=== PATIENT | female | born 1995 | race Caucasian/White ===

== ENCOUNTER 2025-03-17 20:25 | Emergency (ER) | payer OTHER, MEDICAID, SELFPAY ==
--- OUTSIDE RECORDS SUMMARY | 2025-03-17 20:28 | XMS_ITS | CCD ---
Author Organization Unknown Care Team Providers Care Special Education Inclusion Teacher Name Role Phone Director Report, [place] Primary Care Provider Unava ilable Unavailable Chronic Care Management Unavaila ble Summary Purpose DataExchange Insurance Providers Payer name Policy type / Coverage type Covered green party ID Effective Begin Date Effective End Date are Commercial Insurance [id number] Unkn own [facility] Commercial Insurance [id number] Unkn own Family History Family History data not found Medication Administered No Medication Administered data Reason For Visit No Reason For Visit data
--- OUTSIDE RECORDS SUMMARY | 2025-03-17 20:28 | XMS_ITS | Clinical Summary ---
Author Organization [facility] Address [address], [place] [address] Care Team Providers Care It Sales Executive Name Role Phone Unavailable Primary Care Provider Unavailabl e Source Comments You are receiving this document as you are listed as the primary care provider,follow-up provider, or the patient has been referred to you for consultation.This is in compliance with the Medicare andMedicaid EHR Incentive Program,which states Providers who transition their patient to another setting of careor provider of care or refers their patient to another provider of care shouldprovide summary care record for each transition of care or referral. [facility] Allergies Active Allergy Reactions Criticality Noted Date Comments Amoxicillin Hives High 04/14/2019 Medications citalopram (CELEXA) 20 MG tablet Take 20 mg by mouth daily. 3 04/04/2019 Active JUNEL FE 24 1-20 MG-MCG(24) TK 1 T PO QD UTD 3 04/04/2019 Active amphetamine-dext roamphetamine (ADDERALL XR) 25 MG 24 hour release capsule TK 1 C PO BID UTD 0 04/04/2019 Active Active Problems No known active problems Social History Tobacco Use Types Packs/Day Years Used Date Smoking Tobacco: Never Smokeless Tobacco: Never Comments No Sex and Gender Information Value Date Recorded Sex Assigned at Not on file Legal Sex Female 4:04 PM CDT Gender Identity Not on file Sexual Orientation Not on file Last Filed Vital Signs Vital Sign Reading Time Taken Comments Blood Pressure 118/65 04/14/2019 4:47 PM CDT Pulse 86 04/14/2019 4:47 PM CDT Temperature 36.9 C (98.4 F) 04/14/2019 4:15 PM CDT Respiratory Rate 20 04/14/2019 4:43 PM CDT Oxygen Saturation 100% 04/14/2019 4:15 PM CDT Inhaled Oxygen Concentration - - Weight - - Height - - Body Mass Index - - Plan of Treatment Health Maintenance Due Date Last Done Comments Cervical Cancer Screening Due 1995 Hep C Screening (Preventive Services) 1995 HIV Screening (Preventive Services) 2011 Adult Preventive Visit 2013 DTaP/Tdap/Td Vaccine (1 - Tdap) 2014 HepB Vaccine (1) 2014 COVID-19 Vaccine ( - 2023-2 5 season) 2024 Influenza Vaccine (Season Ended) 2025 Zoster/Shingles Vaccine (1 of 2) 2045 HPV Vaccine Aged Out No longer eligi ble based on patient's age to complete this topic HepA Vaccine Aged Out No longer eligi ble based on patient's age to complete this topic Hib Vaccine Aged Out No longer eligi ble based on patient's age to complete this topic IPV (Polio) Vaccine Aged Out No longe r eligible based on patient's age to complete this topic MCV4 Vaccine Aged Out No longer eligi ble based on patient's age to complete this topic Meningococcal B Vaccine Aged Out No l onger eligible based on patient's age to complete this topic Pneumococcal Vaccine Aged Out No long er eligible based on patient's age to complete this topic
--- OUTSIDE RECORDS SUMMARY | 2025-03-17 20:28 | XMS_ITS | Clinical Summary ---
Author Organization [employer] [facility] Address [address] [place] [id number] Care Team Providers Care Corral Boss Name Role Phone Meg Moore RN Unavailable [phone] None Primary Care Provider Unavailabl e Allergies Active Allergy Reactions Criticality Noted Date Comments Amoxicillin Hives High 12/07/2008 Azithromycin Intolerance-Can't Take High 12/07/2009 Long Q-T syndrome Medications buPROPion (WELLBUTRIN XL) 150 mg Extended-Release tablet 1 Active dextroamphetamin e-amphetamine (ADDERALL XR) 20 mg Extended-Release capsule TAKE 1 CAPSULE BY MOUTH ONCE A DAY IN THE AFTERNOON IN ADDITION TO MORNING DOSES OF STIMULANTS. 3 Active methylphenidate HCl (RITALIN) 20 mg tablet Take 50 mg by mouth once daily. 3 Active vit 28/iron fum/folic (multivitamin folic acid 1 mg) Take 1 Tablet by mouth once daily. 4 Active lamoTRIgine 100 mg tablet Take 75 mg by mouth once daily. 5 Active SUMAtriptan (IMITREX) 50 mg tabletIndication s:Migraine with status migrainosus, not intractable, unspecified migraine type Take 1 Tablet (50 mg) by mouth 2 times daily if needed for Migraine. Give at minimum 2hrs apart. Max Dose: 200mg per 24hrs. 10 Tablet 3 5 Active lurasidone (Latuda) 20 mg tablet Take 3 Tablets (60 mg) by mouth. 5 Active buPROPion (WELLBUTRIN XL) 300 mg Extended-Release tablet Take 1 Tablet by mouth once daily. 4 Active Hospital, Clinic, or Other Facility Administered Medication Ordered Dose Route Frequency Start Date End Date Status levonorgestrel (MIRENA) 20 mcg/24 hours (8 yrs) 52 mg intrauterine device (IUD) 1 DeviceIndications:Encounter for IUD insertion 1 Device IU Q 8 YEARS 08/04/2024 Active Active Problems Problem Noted Date Diagnosed Date LGSIL of cervix of undetermined significance 05/2024 Overview (12/18/2023): 11/2023 LSIL/HPV+, HPV 16/18 negative 12/2023 colposcopy: benign cervical bx and ECC. Plan: Pap/HPV due 12/2024 Asthma 10/13/2021 Marijuana use 03/25/2020 Suicidal ideation 03/25/2020 Mood disorder 03/25/2020 Anxiety disorder 09/25/2017 Alcohol use disorder, mild, abuse 07/05/2017 Cannabis use disorder, mild, abuse 07/05/2017 Bipolar 2 disorder 06/21/2017 Mild anemia 07/11/2016 Stimulant use disorder 07/11/2016 Overview (08/07/2016): Has been getting adderall from friends. No not prescribe. 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 Many meds including beta blockers are contraindicated. Encounters Date Type Department Care Team Description 12/30/2024 10:25 AM PHOTO CARTOGRAPHER Office Visit [address] [place] [address] Smooth Stoner MD Joint Pain (shoulders, ankles and knees have been bothersome ) 12/30/2024 Travel 12/20/2024 11:55 AM [facility] Telemedicine [facility] [address] [place] [address] Sofiya William, PUBLIC ADDRESS ANNOUNCER Headache 12/20/2024 Travel from Last 3 Months Immunizations Immunization Administration Dates Next Due COVID-19 VACCINE SPIKEVAX (M ODERNA 50MCG/0.5ML) 12YO+ PFS 11/29/2023 COVID-19 vaccine (Pfizer-Bio NTech 30mcg/0.3mL) 12YO+ BIVALENT PF, MDV 09/03/2022 COVID-19 vaccine (Pfizer-Bio NTech 30mcg/0.3mL) PF, MDV 10/13/2021 Human Papilloma Virus Vaccine 10/01/2014, 012,08/01/2012 Inactivated Polio Vaccine 04/27/2006 Influenza, IIV4 11/29/2023,,10/13/2021,09/22,11/29/2016 MENINGOCOCCAL VACCINE 2 VIAL 2MO-55YO (MENVEO) 10/01/2014 MMR 04/27/2006 Pneumococcal Conj 20-valent (Prevnar 20) 09/03/2022 Tdap 10/01/2014,04/27/2006 Varicella Vaccine 08/01/2012 Family History Medical History Relation Name Comments No Known Problems Brother No Known Problems Daughter Good Health Father No Known Problems Half-Brother No Known Problems Half-Sister No Known Problems Maternal Aunt No Known Problems Maternal Grandfather No Known Problems Maternal Grandmother No Known Problems Maternal Uncle Ulcerative colitis Mother Premature CHD (under age 60) Other no family history of sudden No Known Problems Paternal Aunt No Known Problems Paternal Grandfather No Known Problems Paternal Grandmother No Known Problems Paternal Uncle No Known Problems Sister No Known Problems Son Relation Name Status Comments Brother Daughter Father Alive Half-Brother Half-Sister Maternal Aunt Maternal Grandfather Maternal Grandmother Maternal Uncle Mother Alive Other Paternal Aunt Paternal Grandfather Paternal Grandmother Paternal Uncle Sister Son Social History Tobacco Use Types Packs/Day Years Used Date Smoking Tobacco: Never Passive Smoke Exposure: Never Smokeless Tobacco: Never Tobacco Cessation:Counseling Given: Not Answered Alcohol Use Standard Drinks/Week Comments Yes 0 (1 standard drink = 0.6 oz pure alcohol) occasionally wine, beer or liquor PHQ-2 Answer Date Recorded PHQ-2 TOTAL SCORE 3 11/29/2023 Social Connections Answer Date Recorded Do you often feel lonely or isolated from those around you? 0 12/30/2024 Alcohol Use Answer Date Recorded How often do you have a drink containing alcohol ? 3 01/11/2023 How many drinks containing a lcohol do you have on a typical day when you are drinking? 2 01/11/2023 How often do you have five or more drinks on one occasion? 2 01/11/2023 Financial Resource Strain Answer Date R ecorded Difficulty of Paying Living Expenses 3 12/30/2024 Difficulty of Paying Living Expenses Not on file 12/30/2024 Food Insecurity Answer Date Recorded Do you worry your food will run out before you are able to buy more? 1 12/30/2024 Transportation Needs Answer Date Record ed Does lack of transportation keep you from medica l appointments? 1 12/30/2024 Does lack of transportation keep you from work, meetings or getting things that you need? 1 12/30/2024 Housing Stability Answer Date Recorded What is your housing situation today? 1 12/30/2024 Utilities Answer Date Recorded Do you have trouble paying f or utilities (for example, heat, electricity, water, phone)? 1 12/30/2024 Comments No Sex and Gender Information Value Date Recorded Sex Assigned at Not on file Legal Sex Female 7:34 AM PHOTO CARTOGRAPHER Gender Identity Not on file Sexual Orientation Not on file Occupation Industry Job Start Date Job End Date Not on file Not on file Not on file Not on file Obstetrics History Para Term AB IAB SAB Ectopic Multiple Livin g Live Births 0 0 0 0 0 0 0 0 0 0 0 Last Filed Vital Signs Vital Sign Reading Time Taken Comments Blood Pressure 105/68 12/30/2024 10:20 AM PHOTO CARTOGRAPHER Pulse 97 12/30/2024 10:20 AM PHOTO CARTOGRAPHER Temperature 37.3 C (99.2 F) 10/30/2023 5:16 PM PHOTO CARTOGRAPHER Respiratory Rate 14 10/30/2023 5:16 PM PHOTO CARTOGRAPHER Oxygen Saturation 100% 12/30/2024 10:20 AM PHOTO CARTOGRAPHER Inhaled Oxygen Concentration - - Weight 63.6 kg (140 lb 4.8 oz) 12/30/2024 10:20 AM PHOTO CARTOGRAPHER Height 162.6 cm (5' 4) 11/29/2023 2:42 PM PHOTO CARTOGRAPHER Body Mass Index 24.08 11/29/2023 2:42 PM PHOTO CARTOGRAPHER Plan of Treatment Health Maintenance Due Date Last Done Comments Depression screening for age 12+ 2007 COVID-19 vaccine series ( season) 2024 11/29/2023, 09/03/2022, 10/13/2021, Additional history exists Tetanus booster 10/01/2024 10/01/2014, 04/27/2006 BMI (ht and wt on same day) for age 18+ 11/29/2024 11/29/2023, 10/13/2021, 02/03/2021, Additional history exists Pap test for age 21-65 12/13/2024 (Verified in Care Everywhere or Patient Record), 11/29/2023, 11/29/2023, Additional history exists Influenza Vaccine (Season Ended) 2025 11/29/2023, 09/03/2022, 10/13/2021, Additional history exists Tdap Completed 10/01/2014, 04/27/2006 Pneumococcal series for age 6-49 Completed 09/03/20 Hepatitis C screening for ag e 18-79 Completed 01/11/2023 HIV for age 15-65 Completed 09/20/2023, , 02/03/2021 Procedures Procedure Name Priority Date/Time Associated Diagnosis Comments DIRECTOR OF LEADERSHIP DEVELOPMENT THIN PREP PAP SCREEN IMAGED Routine 11/29/2023 4:59 PM PHOTO CARTOGRAPHER Cervical cancer screening ANTI HIV 1/2 Routine 09/20/2023 6:58 PM PHOTO CARTOGRAPHER Encounter for assessment of STD exposure LC HCV ANTIBODY RFX TO QUANT PCR Routine 01/11/2023 2:08 PM PHOTO CARTOGRAPHER Screening examination for STD (sexually transmitted disease) from Last 3 Months or Most Recently Relevant to Health Maintenance Results * (ABNORMAL) DIRECTOR OF LEADERSHIP DEVELOPMENT THIN PREP PAP SCREEN IMAGED (11/29/2023 4:59 PM PHOTO CARTOGRAPHER) Case Report Gynecologic Cytology Report Case: [id number] Authorizing Provider: Akila Bruno DO Collected: 11/29/20231658 Ordering Location: [facility] Received: 11/29/2023 1659 Clinic First Screen: Kathy Lawson Pathologist: Miky Celaya MD Specimen: DIRECTOR OF LEADERSHIP DEVELOPMENT ThinPrep Vial Screening, Cervical 12/11/2023 5:12 PM PHOTO CARTOGRAPHER [facility] INTERPRETATION/ RESULT LOW GRADE SQUAMOUS INTRAEPITHELIAL LESION (LSIL)(A) (none) 12/11/2023 5:12 PM PHOTO CARTOGRAPHER [facility] [employer] [facility] at 1712 PHOTO CARTOGRAPHER SPECIMEN ADEQUACY Satisfactory for evaluation Endocervical component present 12/11/2023 5:12 PM PHOTO CARTOGRAPHER [facility] [employer] [facility] HPV REQUEST HPV and PAP 12/11/2023 5:12 PM PHOTO CARTOGRAPHER [facility] [employer] [facility] Date of LMP 1 month ago 12/11/2023 5:12 PM PHOTO CARTOGRAPHER [facility] [employer] [facility] Last Pap Date 09/22/20 12/11/2023 5:12 PM PHOTO CARTOGRAPHER [facility] Last Pap Result NIL 5:12 PM PHOTO CARTOGRAPHER [facility] EN[facility] Abnormal Pap or [place] Bx in last 5 years No 12/11/2023 5:12 PM PHOTO CARTOGRAPHER [facility] [employer] [facility] ENTRAL LAB[facility] Menstrual Status Hormonally Suppressed 12/11/2023 5:12 PM PHOTO CARTOGRAPHER [facility] ENTRAL LABORATORY [place] Bx Done Today No 12/11/2023 5:12 PM PHOTO CARTOGRAPHER [facility] ENTRAL LABORATORY Additional Information None given 12/11/2023 5:12 PM PHOTO CARTOGRAPHER [facility] ENTRAL LABORATORY Comment: Cytology is screened at [facility] [employer], Central Laboratory - [address], [place] [address] and [facility] Laboratory - [address], [place] [address] and [facility] - [address] [place] [address] Interpreted at [facility] Laboratory - [address] [place] [address] [address], [place] [address] Automated Review Successful 12/11/2023 5:12 PM PHOTO CARTOGRAPHER [facility] ENTRAL LABORATORY Comment:Specimen processed s uccessfully by automated pipe maker device, ThinPrep Imaging System, [employer] ANCILLARY TESTING DIRECTOR OF LEADERSHIP DEVELOPMENT HPV Ordered, Please see separate report 12/11/2023 5:12 PM PHOTO CARTOGRAPHER [facility] ENTRMD LABORATORY Note The pap test is a screening technique, not a diagnostic procedure. It is used primarily to screen for squamous cancers and precursor lesions. Published studies have shown that it is subject to both false negative and false positive results. The pap test should not be used as the sole means to diagnose or exclude pre-malignant and malignant lesions. 12/11/2023 5:12 PM PHOTO CARTOGRAPHER [facility] Other (Cervical) Non-Blood / Unknown 11/29/2023 4:59 PM PHOTO CARTOGRAPHER 11/29/2023 4:59 PM PHOTO CARTOGRAPHER Akila Bruno DO PATHOLOGY/CYTOLOGY Final Resu lt Performing Organization Address City/[facility]/ZIP Co de Phone Number [facility] [address] [place] [address], [place] * ANTI HIV 1/2 (09/20/2023 6:58 PM PHOTO CARTOGRAPHER) Pathologist [facility] HIV-1/HIV-2 SCREEN Non-Reacti ve Non-Reacti ve 09/21/2023 2:01 PM PHOTO CARTOGRAPHER [facility] TRAL LABORATORY Comment:HIV-1 p24 and HIV-1/ HIV-2 Ab Not Detected. Blood BLOOD SPECIMEN / Unknown Venipuncture / Unknown 09/20/2023 6:58 PM PHOTO CARTOGRAPHER 09/20/2023 6:58 PM PHOTO CARTOGRAPHER Jaki Ovalle PUBLIC ADDRESS ANNOUNCER SEND OUTS Final Res ult [facility] [address] [place] [address], [place] * LC HCV ANTIBODY RFX TO QUANT PCR (01/11/2023 2:08 PM PHOTO CARTOGRAPHER) HCV Ab Non Reactive Non Reactive 01/15/2023 1:09 PM CDT [facility] ([facility] Blood BLOOD SPECIMEN / Unknown Venipuncture / Unknown 01/11/2023 2:08 PM PHOTO CARTOGRAPHER 01/11/2023 2:12 PM PHOTO CARTOGRAPHER Narrative [facility] ESOTERIC TESTING (CET) - 01/15/2023 1:09 PM CDT Performed at: - [address] [id number] Career Resource Technician: Osman Quan MD, Phone: [phone] Kim Elkins NP LABORATORY Final Result [facility] (CET) [facility] [place] [address], from Last 3 Months or Most Recently Relevant to Health Maintenance Insurance [facility] Advance Directives * Full Code (Latest Code Status on File) Date Activated Date Inactivated Comments 03/24/2020 9:38 PM 03/26/2020 7:43 PM Question Answer Comments Code Status Discussion: Not Discussed * Full Code Date Activated Date Inactivated Comments 07/04/2017 1:38 PM 07/10/2017 8:28 PM * Full Code Date Activated Date Inactivated Comments 07/11/2016 1:31 AM 07/13/2016 7:00 PM Care Teams Corral Boss Relationship Specialty Start Date End Date None . PCP - General 11/29/23 Meg Moore, RN [address] [place] [address] Primary Care RN Care Management Registered Nurse 11/28/23
[2025-03-17 20:52] VITALS: BP 125/80; PULSE 78; RESP 16; TEMP 37.3; O2SAT 100; BMI 23.0
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
--- OUTSIDE RECORDS SUMMARY | 2025-03-17 22:46 | XMS_ITS | CCD ---
Author Organization Unknown Care Team Providers Care Vest Presser Name Role Phone Harvest Manager, [place] Primary Care Provider Unava ilable Unavailable Chronic Care Management Unavaila ble Summary Purpose DataExchange Insurance Providers Payer name Policy type / Coverage type Covered libertarian ID Effective Begin Date Effective End Date are Commercial Insurance [id number] Unkn own [facility] Commercial Insurance [id number] Unkn own Family History Family History data not found Medication Administered No Medication Administered data Reason For Visit No Reason For Visit data
--- OUTSIDE RECORDS SUMMARY | 2025-03-17 22:46 | XMS_ITS | Clinical Summary ---
Author Organization [facility] Address [address], [place] [address] Care Team Providers Care Product Introduction Manager Name Role Phone Unavailable Primary Care Provider [...] for each transition of care or referral. [facility] Allergies Active Allergy Reactions Criticality Noted Date [...]
--- OUTSIDE RECORDS SUMMARY | 2025-03-17 22:46 | XMS_ITS | Clinical Summary ---
Author Organization [facility] [facility] Address [address] [place] [address] Care Team Providers Care Application Development Liaison Name Role Phone Meg Moore RN Unavailable [phone] None Primary Care Provider Unavailabl e Allergies [...] Department Care Team Description 12/30/2024 10:25 AM COOKER HELPER Office Visit [facility] [address] [place] [address] Smooth Stoner MD Joint Pain (shoulders, ankles and knees have been bothersome ) 12/30/2024 Travel 12/20/2024 11:55 AM [facility] Telemedicine [facility] [address] [place] [address] Sofiya William, ENGLISH INSTRUCTOR Headache 12/20/2024 Travel from Last 3 Months [...] on file Legal Sex Female 7:34 AM COOKER HELPER Gender Identity Not on file Sexual Orientation [...] Comments Blood Pressure 105/68 12/30/2024 10:20 AM COOKER HELPER Pulse 97 12/30/2024 10:20 AM COOKER HELPER Temperature 37.3 C (99.2 F) 10/30/2023 5:16 PM COOKER HELPER Respiratory Rate 14 10/30/2023 5:16 PM COOKER HELPER Oxygen Saturation 100% 12/30/2024 10:20 AM COOKER HELPER Inhaled Oxygen Concentration - - Weight 63.6 kg (140 lb 4.8 oz) 12/30/2024 10:20 AM COOKER HELPER Height 162.6 cm (5' 4) 11/29/2023 2:42 PM COOKER HELPER Body Mass Index 24.08 11/29/2023 2:42 PM COOKER HELPER Plan of Treatment Health Maintenance Due Date [...] Procedure Name Priority Date/Time Associated Diagnosis Comments FORGE HELPER THIN PREP PAP SCREEN IMAGED Routine 11/29/2023 4:59 PM COOKER HELPER Cervical cancer screening ANTI HIV 1/2 Routine 09/20/2023 6:58 PM COOKER HELPER Encounter for assessment of STD exposure LC HCV ANTIBODY RFX TO QUANT PCR Routine 01/11/2023 2:08 PM COOKER HELPER Screening examination for STD (sexually transmitted disease) from Last 3 Months or Most Recently Relevant to Health Maintenance Results * (ABNORMAL) FORGE HELPER THIN PREP PAP SCREEN IMAGED (11/29/2023 4:59 PM COOKER HELPER) Case Report Gynecologic Cytology Report Case: [id number] Authorizing Provider: Akila Bruno DO Collected: 11/29/20231658 Ordering Location: [facility] Received: 11/29/2023 1659 Clinic First Screen: Kathy Lawson Pathologist: Miky Celaya MD Specimen: FORGE HELPER ThinPrep Vial Screening, Cervical 12/11/2023 5:12 PM [facility]OOKER HELPER [facility] INTERPRETATION/ RESULT LOW GRADE SQUAMOUS INTRAEPITHELIAL LESION (LSIL)(A) (none) 12/11/2023 5:12 PM COOKER HELPER [facility] [employer] [facility] at [address] COOKER HELPER SPECIMEN ADEQUACY Satisfactory for evaluation Endocervical component present 12/11/2023 5:12 PM COOKER HELPER [facility] [employer] [facility] HPV REQUEST HPV and PAP 12/11/2023 5:12 PM COOKER HELPER [facility] [employer] [facility] Date of LMP 1 month ago 12/11/2023 5:12 PM COOKER HELPER [facility] [employer] [facility] Last Pap Date 09/22/20 12/11/2023 5:12 PM COOKER HELPER [facility] Last Pap Result NIL 5:12 PM COOKER HELPER [facility] Abnormal Pap or [place] Bx in last 5 years No 12/11/2023 5:12 PM COOKER HELPER [facility] [employer] [facility] Menstrual Status Hormonally Suppressed 12/11/2023 5:12 PM COOKER HELPER [facility] ENTRAL LABOR[facility]ORY [place] Bx Done Today No 12/11/2023 5:12 PM COOKER HELPER [facility] ENTRAL [facility] Additional Information None given 12/11/2023 5:12 PM COOKER HELPER [facility] EN[facility] Comment: Cytology is screened at [facility], Central Laboratory - [address], [place] [address] and [facility] - [address] [place] [address] and [facility] - [address] [place] [address] Interpreted at [facility] Central Laboratory - [address] [place] [address] [address], [place] [address] Automated Review Successful 12/11/2023 5:12 PM COOKER HELPER [facility] ENTR[facility] Comment:Specimen processed s uccessfully by automated cottage attendant device, ThinPrep Imaging System, [employer] ANCILLARY TESTING FORGE HELPER HPV Ordered, Please see separate report 12/11/2023 5:12 PM COOKER HELPER [facility] ENTR[facility] Note The pap test is a screening technique, not a diagnostic procedure. It is used primarily to screen for squamous cancers and precursor lesions. Published studies have shown that it is subject to both false negative and false positive results. The pap test should not be used as the sole means to diagnose or exclude pre-malignant and malignant lesions. 12/11/2023 5:12 PM COOKER HELPER [facility] Other (Cervical) Non-Blood / Unknown 11/29/2023 4:59 PM COOKER HELPER 11/29/2023 4:59 PM COOKER HELPER Akila Burno DO PATHOLOGY/CYTOLOGY Final Resu lt Performing Organization Address City/[facility]/ZIP Co de Phone Number [facility] [address] [place] [address], [place] * ANTI HIV 1/2 (09/20/2023 6:58 PM COOKER HELPER) Pathologist [facility] HIV-1/HIV-2 SCREEN Non-Reacti ve Non-Reacti ve 09/21/2023 2:01 PM COOKER HELPER [facility] TRAL LABORATORY Comment:HIV-1 p24 and HIV-1/ HIV-2 Ab Not Detected. Blood BLOOD SPECIMEN / Unknown Venipuncture / Unknown 09/20/2023 6:58 PM COOKER HELPER 09/20/2023 6:58 PM COOKER HELPER Jaki Ovalle ENGLISH INSTRUCTOR SEND OUTS Final Res ult [facility] [address] [place] [address], [place] * LC HCV ANTIBODY RFX TO QUANT PCR (01/11/2023 2:08 PM COOKER HELPER) HCV Ab Non Reactive Non Reactive 01/15/2023 1:09 PM [facility] Blood BLOOD SPECIMEN / Unknown Venipuncture / Unknown 01/11/2023 2:08 PM COOKER HELPER 01/11/2023 2:12 PM COOKER HELPER Narrative [facility] ([facility]) - 01/15/2023 1:09 PM CDT Performed at: - [address] [id number] Director Geophysical Laboratory: Osman Quan MD, Phone: [phone] Kim Elkins NP LABORATORY Final Result [facility] (CET) [facility] [place] [address], from Last 3 Months or Most Recently Relevant to Health Maintenance Insurance [facility] Advance Directives * Full Code (Latest Code Status on File) Date Activated Date Inactivated Comments 03/24/2020 9:38 PM 03/26/2020 7:43 PM Question Answer Comments Code Status Discussion: Not Discussed * Full Code Date Activated Date Inactivated Comments 07/04/2017 1:38 PM 07/10/2017 8:28 PM * Full Code Date Activated Date Inactivated Comments 07/11/2016 1:31 AM 07/13/2016 7:00 PM Care Teams Application Development Liaison Relationship Specialty Start Date End Date None . PCP - General 11/29/23 Meg Moore, RN [address] [place] [id number] Primary Care RN Care Management Registered Nurse 11/28/23
--- OUTSIDE RECORDS SUMMARY | 2025-03-17 22:46 | XMS_ITS | CCD ---
Author Organization Unknown Care Team Providers Care Industrial Relations Commissioner Name Role Phone Smokehouse Worker, [place] Primary Care Provider Unava ilable Unavailable Chronic Care Management Unavaila ble Summary Purpose DataExchange Insurance Providers Payer name Policy type / Coverage type Covered alliance party ID Effective Begin Date Effective End Date are Commercial Insurance [id number] Unkn own [facility] Commercial Insurance [id number] Unkn own Family History Family History data not found Medication Administered No Medication Administered data Reason For Visit No Reason For Visit data
[2025-03-17 22:49] VITALS: BP 118/74; PULSE 74; RESP 16; TEMP 37.3; O2SAT 100
[2025-03-17 22:50] VITALS: BP 118/74; PULSE 74; RESP 16; TEMP 37.3
== END 2025-03-17 22:50 | disposition home or self-care (01) ==
LOC: ED 22:44
PROVIDERS: Emergency Provider Family Medicine
DX: S06.0X0A Concussion without loss of consciousness, initial encounter (principal); Y93.43 Activity, gymnastics
CPT/HCPCS: 99282; 99283; 99284